=== PATIENT | female | born 1955 | race African-American/Black ===

== ENCOUNTER 2022-08-04 18:38 | Inpatient (IN) | payer MEDICARE, MEDICAID ==
[~2022-08-04] VITALS: Ht 320 cm; Wt 93.0 kg
[2022-08-04] MEDS ORDERED: METHYLPREDNISOLONE SOD SUCC 125 MG/2 ML VIAL IV STA (18:40)
[2022-08-04] MEDS ORDERED: IPRATROPIUM BROMIDE (0.02%) 0.5MG/2.5ML NEB HHN STA (18:40)
[2022-08-04] MEDS ORDERED: ALBUTEROL (0.083%) 2.5MG/3ML NEB HHN STA (18:40)
[2022-08-04] MEDS ORDERED: MAGNESIUM 2 G PREMIX 50 ML IV STA (18:40)
[2022-08-04 19:16] LABS: BASOPHILS % 0.3 % (0.0-2.0); EOSINOPHILS % 14.4 % (0.0-5.0); HEMOGLOBIN. 13.6 g/dL (12.0-16.0); LYMPHOCYTES % 31.1 % (20.0-50.0); MEAN CORPUSCULAR HEMOGLOBIN 30.8 pg (28.0-32.0); MEAN CORPUSCULAR VOLUME 92.5 fL (81.0-99.0); MEAN PLATELET VOLUME 9.5 fl (7.4-10.4); MONOCYTES % 5.9 % (2.0-8.0); NEUTROPHILS % 48.3 % (40.0-76.0); PLATELET 211 x1000/uL (130-400); RED BLOOD CELL COUNT 4.43 mill/uL (4.2-5.4); RED CELL DISTRIBUTION WIDTH 15.2 % (11.6-14.6)
[2022-08-04 19:27] LABS: CHLORIDE 109 mEq/L (98-107)
[2022-08-04] MEDS ORDERED: ACETAMINOPHEN 500MG TABLET PO ONE (20:45)
[2022-08-04] MEDS ORDERED: IPRATROPIUM/ALBUTEROL 0.5-3(2.5)MG/3ML NEB HHN PRN (22:45)
[2022-08-04] MEDS ORDERED: DOCUSATE SODIUM 100MG CAPSULE PO PRN (22:45)
[2022-08-04] MEDS ORDERED: DEXTROSE 50% WATER 50ML SYRINGE IV PRN (22:45)
[2022-08-04] MEDS ORDERED: ACETAMINOPHEN 325MG TABLET PO PRN (22:45)
[2022-08-04] MEDS ORDERED: ONDANSETRON HCL 4MG/2ML INJ IV PRN (22:45)
[2022-08-04] MEDS ORDERED: MAGNESIUM/ALUMINUM HYDROXIDE/SIMETHICONE 30ML UDC PO PRN (22:45)
[2022-08-04] MEDS ORDERED: KCL 10MEQ/50ML PREMIX 50 ML IV NR (22:45)
[2022-08-04] MEDS ORDERED: IPRATROPIUM/ALBUTEROL 0.5-3(2.5)MG/3ML NEB HHN SCH (22:45)
[2022-08-04] MEDS: IPRATROPIUM BROMIDE (0.02%) 0.5MG/2.5ML NEB HHN PRN (23:14)
[2022-08-04] MEDS: ALBUTEROL (0.083%) 2.5MG/3ML NEB HHN PRN (23:15)
[2022-08-04] MEDS: CEFTRIAXONE 1GM PREMIX 50 ML IV SCH (23:25)
[2022-08-04] MEDS: METHYLPREDNISOLONE SOD SUCC 40 MG/ML VIAL IV SCH (23:26)
[2022-08-04] MEDS: INSULIN GLARGINE 100 UNITS/ML SUBCUT SCH (23:27)
[2022-08-04] MEDS: CLONIDINE 0.1MG TABLET PO PRN (23:29)
[2022-08-04] MEDS ORDERED: POTASSIUM CHLORIDE 20MEQ/PACKET PO NR (23:45)
[2022-08-04 23:50] LABS: CLARITY URINE CLEAR (CLEAR); COLOR URINE YELLOW (YELLOW); KETONES URINE TRACE (NEGATIVE); LEUKOCYTE ESTERASE URINE NEGATIVE (NEGATIVE); NITRITE URINE NEGATIVE (NEGATIVE); OCCULT BLOOD URINE NEGATIVE (NEGATIVE); PROTEIN URINE 2+ (NEGATIVE); SPECIFIC GRAVITY URINE 1.025 (1.005-1.030); UROBILINOGEN URINE 0.2 E.U./dL (0.2-1.0)
[2022-08-05] MEDS: GUAIFENESIN 200MG/10ML SUGAR FREE UDC PO PRN ×3 (00:12→22:42)
[2022-08-05] MEDS: LOSARTAN POTASSIUM 50 MG TABLET PO SCH ×2 (00:12→10:03)
[2022-08-05] MEDS: INSULIN LISPRO 100 UNITS/ML SUBCUT SCH ×7 (00:14→21:22)
[2022-08-05] MEDS: AZITHROMYCIN 500MG/250ML 250 ML IV SCH (00:16)
[2022-08-05 00:18] LABS: *AMPHETAMINES SCREEN URINE NEGATIVE (NEGATIVE); *BARBITURATES SCREEN URINE NEGATIVE (NEGATIVE); *BENZODIAZEPINES SCREEN URINE NEGATIVE (NEGATIVE); *COCAINE SCREEN URINE NEGATIVE (NEGATIVE); CANNABINOID URINE SCREEN NEGATIVE (NEGATIVE); METHADONE URINE SCREEN NEGATIVE (NEGATIVE); OPIATES URINE SCREEN NEGATIVE (NEGATIVE); PHENCYCLIDINE URINE SCREEN NEGATIVE (NEGATIVE)
[2022-08-05] MEDS: IPRATROPIUM BROMIDE (0.02%) 0.5MG/2.5ML NEB HHN SCH ×4 (01:26→21:10)
[2022-08-05] MEDS: ALBUTEROL (0.083%) 2.5MG/3ML NEB HHN SCH ×4 (01:26→21:10)
[2022-08-05 02:36] LABS: BG BASE EXCESS -9.9 mmol/L (-2.0-2.0); BG CARBOXYHEMOGLOBIN 0.3 % (0.5-1.5); BG DEOXYHEMOGLOBIN 2.2 % (0.0-5.0); BG FRACTION INSPIRED OXYGEN 32; BG HCO3 ACT 13.7 mmol/L (22.0-26.0); BG METHEMOGLOBIN 0.3 % (0.0-1.5); BG OXYGEN SATURATION 97.8 % (92.0-98.5); BG OXYHEMOGLOBIN 97.2 % (94.0-97.0); BG PCO2 23.8 mmHg (35.0-45.0); BG PH 7.377 (7.350-7.450); BG PO2 110.2 mmHg (75.0-100.0); BG SAMPLE SITE RIGHT RADIAL; BG TOTAL HEMOGLOBIN 10.8 g/dL (12.0-18.0); BG VENT MODE NASAL CANNULA
[2022-08-05 05:26] LABS: HEMATOCRIT. 37.4 % (36.0-48.0); HEMOGLOBIN. 12.7 g/dL (12.0-16.0); MEAN CORPUSCULAR HEMOGLOBIN 30.9 pg (28.0-32.0); MEAN CORPUSCULAR VOLUME 91.1 fL (81.0-99.0); MEAN PLATELET VOLUME 9.4 fl (7.4-10.4); PLATELET 229 x1000/uL (130-400); RED BLOOD CELL COUNT 4.11 mill/uL (4.2-5.4); RED CELL DISTRIBUTION WIDTH 14.8 % (11.6-14.6)
[2022-08-05 05:35] LABS: CHLORIDE 107 mEq/L (98-107)
[2022-08-05 05:49] LABS: HDL CHOLESTEROL 58 mg/dL (40-59); LDL CHOLESTEROL 52 mg/dL (5-100); T4 FREE 0.91 ng/dL (0.76-1.46)
[2022-08-05] MEDS: ALBUTEROL (0.083%) 2.5MG/3ML NEB HHN PRN (05:50)
[2022-08-05] MEDS: IPRATROPIUM BROMIDE (0.02%) 0.5MG/2.5ML NEB HHN PRN (05:50)
[2022-08-05] MEDS ORDERED: PANTOPRAZOLE 40MG DR TABLET PO SCH (06:30)
[2022-08-05] MEDS ORDERED: BLOOD SUGAR DIAGNOSTIC STRIP TEST SCH (06:30)
[2022-08-05] MEDS ORDERED: INSULIN LISPRO 100 UNITS/ML SUBCUT SCH ×2 (06:30→08:20)
[2022-08-05 06:48] LABS: PLATELET ESTIMATE NORMAL
[2022-08-05] MEDS: METHYLPREDNISOLONE SOD SUCC 40 MG/ML VIAL IV SCH ×3 (06:53→22:42)
[2022-08-05] MEDS: CLONIDINE 0.1MG TABLET PO PRN (06:53)
[2022-08-05] MEDS: ENOXAPARIN 30MG/0.3ML SYR SUBCUT SCH ×2 (10:04→21:22)
[2022-08-05] MEDS ORDERED: DEXTROSE 50% WATER 50ML SYRINGE IV PRN (11:15)
[2022-08-05] MEDS: BLOOD SUGAR DIAGNOSTIC STRIP TEST SCH ×3 (11:43→21:22)
[2022-08-05 14:00] VITALS: BP 150/84
[2022-08-05] MEDS ORDERED: IOHEXOL-350 100 ML BOTTLE ONE (14:26)
[2022-08-05] MEDS: ACETAMINOPHEN 325MG TABLET PO PRN ×2 (15:03→20:40)
[2022-08-05 16:00] VITALS: BP 156/89
[2022-08-05 20:00] VITALS: BP 156/84
[2022-08-05] MEDS: CEFTRIAXONE 1GM PREMIX 50 ML IV SCH (23:11)
[2022-08-06] VITALS: BP 178/91
[2022-08-06] MEDS: AZITHROMYCIN 500MG/250ML 250 ML IV SCH (00:04)
[2022-08-06] MEDS: INSULIN GLARGINE 100 UNITS/ML SUBCUT SCH (00:05)
[2022-08-06] MEDS: ALBUTEROL (0.083%) 2.5MG/3ML NEB HHN SCH ×2 (01:16→08:29)
[2022-08-06] MEDS: IPRATROPIUM BROMIDE (0.02%) 0.5MG/2.5ML NEB HHN SCH ×2 (01:17→08:29)
[2022-08-06] MEDS: CLONIDINE 0.1MG TABLET PO PRN (02:24)
[2022-08-06 04:00] VITALS: BP 122/92
[2022-08-06 06:10] LABS: BASOPHILS % 0.1 % (0.0-2.0); EOSINOPHILS % 0.1 % (0.0-5.0); HEMATOCRIT. 36.9 % (36.0-48.0); HEMOGLOBIN. 12.3 g/dL (12.0-16.0); LYMPHOCYTES % 7.3 % (20.0-50.0); MEAN CORPUSCULAR HEMOGLOBIN 30.3 pg (28.0-32.0); MEAN PLATELET VOLUME 10.1 fl (7.4-10.4); MONOCYTES % 3.7 % (2.0-8.0); NEUTROPHILS % 88.8 % (40.0-76.0); PLATELET 228 x1000/uL (130-400); RED BLOOD CELL COUNT 4.05 mill/uL (4.2-5.4); RED CELL DISTRIBUTION WIDTH 15.2 % (11.6-14.6)
[2022-08-06] MEDS: METHYLPREDNISOLONE SOD SUCC 40 MG/ML VIAL IV SCH (06:25)
[2022-08-06] MEDS: INSULIN LISPRO 100 UNITS/ML SUBCUT SCH ×2 (06:27→06:38)
[2022-08-06] MEDS: BLOOD SUGAR DIAGNOSTIC STRIP TEST SCH ×2 (06:27→11:40)
[2022-08-06 08:00] VITALS: BP 165/96
[2022-08-06] MEDS: LOSARTAN POTASSIUM 50 MG TABLET PO SCH (08:27)
[2022-08-06] MEDS: ENOXAPARIN 30MG/0.3ML SYR SUBCUT SCH (08:27)
[2022-08-06 08:47] LABS: BG BASE EXCESS -2.8 mmol/L (-2.0-2.0); BG CARBOXYHEMOGLOBIN 0.3 % (0.5-1.5); BG DEOXYHEMOGLOBIN 3.5 % (0.0-5.0); BG FRACTION INSPIRED OXYGEN 28; BG HCO3 ACT 21.1 mmol/L (22.0-26.0); BG METHEMOGLOBIN 0.2 % (0.0-1.5); BG OXYGEN SATURATION 96.5 % (92.0-98.5); BG PCO2 34.2 mmHg (35.0-45.0); BG PH 7.409 (7.350-7.450); BG SAMPLE SITE RIGHT RADIAL; BG TOTAL HEMOGLOBIN 13.5 g/dL (12.0-18.0); BG VENT MODE NASAL CANNULA
[2022-08-06] MEDS ORDERED: FAMOTIDINE 20MG TABLET PO SCH (09:00)
[2022-08-06 09:25] LABS: CHLORIDE 106 mEq/L (98-107)
[2022-08-06] MEDS: GUAIFENESIN 200MG/10ML SUGAR FREE UDC PO PRN (11:14)
[2022-08-06 12:00] VITALS: BP 150/85
[2022-08-06] MEDS ORDERED: METHYLPREDNISOLONE SOD SUCC 40 MG/ML VIAL IV SCH (21:00)
== END 2022-08-06 13:03 | disposition home health service (06) | DRG 189 ==
LOC: ER 18:38 → MICUSO 20:56 → EDBEDREQTM 21:50 → EDBEDREQ 21:50 → 7EST 08-05 13:17
PROVIDERS: ADMIT Hospitalist; ATTEND Hospitalist
PROC: 5A09357 Assistance with Respiratory Ventilation, Less than 24 Consecutive Hours, Continuous Positive Airway Pressure (ICD-10-PCS; principal; 2022-08-04)
PROC: 5A09357 Assistance with Respiratory Ventilation, Less than 24 Consecutive Hours, Continuous Positive Airway Pressure (ICD-10-PCS; 2022-08-05)
DX: J96.01 Acute respiratory failure with hypoxia (principal); J44.1 Chronic obstructive pulmonary disease with (acute) exacerbation; I16.9 Hypertensive crisis, unspecified; Z68.41 Body mass index [BMI] 40.0-44.9, adult; E87.20 Acidosis, unspecified; E11.9 Type 2 diabetes mellitus without complications; Z20.822 Contact with and (suspected) exposure to COVID-19; I10 Essential (primary) hypertension; E66.01 Morbid (severe) obesity due to excess calories; D72.10 Eosinophilia, unspecified; E87.6 Hypokalemia; G47.33 Obstructive sleep apnea (adult) (pediatric); E83.51 Hypocalcemia; Z87.01 Personal history of pneumonia (recurrent); Z87.891 Personal history of nicotine dependence
CPT/HCPCS: 36415; 36600; 71045; 71250; 71275; 80053; 80061; 80305; 81003; 82375; 82805; 82962; 83036; 83605; 83880; 84145; 84439; 84443; 84484; 85025; 85379; 87070; 87426; 87804; 93005; 93970; 94640; 94644; 94660; 99285; C9803; J0456; J0696; J1650; J1815; J2920; J2930; J3475; J3480; Q9967